=== PATIENT | male | born 1950 | race Caucasian/White ===

== ENCOUNTER 2021-07-07 10:59 | Day surgery (SDC) | payer MEDICARE, BC ==
[~2021-07-07 10:59] MED LIST: Lactated Ringers 1,000 ML IV SCH
[2021-07-07] MEDS ORDERED: Propofol 200 MG/20 ML SDV ONE ×2 (11:46→12:04)
[2021-07-07] MEDS ORDERED: Midazolam 1 MG/ML 2 ML SDV ONE (11:46)
[2021-07-07] MEDS ORDERED: Propofol 200 MG/20 ML SDV IV ONE (15:09)
== END 2021-07-07 13:35 | disposition home or self-care (01) ==
LOC: KA.SDS 10:59
PROVIDERS: ATTEND Family Medicine
DX: Z12.11 Encounter for screening for malignant neoplasm of colon (principal); E78.2 Mixed hyperlipidemia; R73.03 Prediabetes; I25.10 Atherosclerotic heart disease of native coronary artery without angina pectoris; I10 Essential (primary) hypertension; E66.9 Obesity, unspecified; J31.0 Chronic rhinitis; F41.1 Generalized anxiety disorder; N40.1 Benign prostatic hyperplasia with lower urinary tract symptoms; R35.1 Nocturia; Z86.73 Personal history of transient ischemic attack (TIA), and cerebral infarction without residual deficits; F51.04 Psychophysiologic insomnia
CPT/HCPCS: 00812; J2250; J2704; J7120